=== PATIENT | female | born 1965 | race Caucasian/White ===

== ENCOUNTER 2018-11-01 18:51 | Emergency (ER) | payer OTHER ==
[~2018-11-01] VITALS: Ht 152.4 cm; Wt 82.7 kg
[2018-11-01 18:59] VITALS: Ht 152.4 cm; Wt 82.7 kg
[2018-11-01] MEDS ORDERED: VOLTAREN75 MG PO (22:01)
[2018-11-01 22:40] VITALS: BP 154/87
== END 2018-11-01 22:41 | disposition home or self-care (01) ==
LOC: D.ER 18:51
DX: M62.830 Muscle spasm of back (principal); V49.49XA Driver injured in collision with other motor vehicles in traffic accident, initial encounter